=== PATIENT | female | born 1960 | race African-American/Black ===

== ENCOUNTER 2018-02-03 04:37 | Inpatient (IN) ==
[2018-01-20 14:00] LABS: Apearance,Urine CLEAR (Clear); Bacteria,Urine Occasional /HPF (Few); Bilirubin,Urine Negative (Negative); Blood, Urine Negative (Negative); Glucose,Urine (UA) Negative (Negative); Ketones,Urine Negative (Negative); Mucus,Urine Occasional /LPF (Occasional); Nitrite,Urine Negative (Negative); Protein,Urine Negative; RBC,Urine 1 /HPF (0-4); Squamous Epithelial Cell,Urine Occasional /HPF (0-10); Urine Color Yellow (Yellow); Urine Specific Gravity 1.015 (1.001-1.035); Urine Urobilinogen < 2.0 EU/DL (0.2-1.0); WBC,Urine 1 /HPF (0-6)
[2018-01-20 14:33] LABS: Albumin 3.3 G/DL (3.4-5.0); Basophils % 0.3 % (0.0-0.8); Bilirubin,Total 0.4 MG/DL (0.2-1.0); Calcium 10.3 MG/DL (8.5-10.1); Eosinophils # 0.3 10*3/uL (0.0-0.87); Eosinophils % 3.3 % (0.00-10.9); Hematocrit 39.9 VOL% (35.7-47.0); Immature Granulocytes % 0.6 %; Immature Granulocytes Absolute 0.05 #; Lymphocytes # 2.1 10*3/uL (1.4-4.0); Lymphocytes % 23.7 % (21.3-54.2); Mean Corpuscular HGB Conc 30.1 GM/DL (32-36); Mean Corpuscular Hemoglobin 29 PG (27-34); Mean Corpuscular Volume 96.6 FL (87-102); Monocytes # 0.5 10*3/uL (0.11-0.8); Monocytes % 5.2 % (1.7-12.7); Neutrophils % 66.9 % (38.7-73.9); Osmolality,Calculated 280.4 MOS/KG (273-304); Platelet Count 289 T/CUMM (130-400); Potassium 3.9 MMOL/L (3.5-5.1); Red Blood Count 4.13 MC/CUMM (3.8-5.5); Red Cell Distribution Width 15.4 % (9.3-17.3); Total Protein 8.2 G/DL (6.4-8.3)
[2018-01-20 14:43] LABS: PT Patient Result 10.2 SECS; Partial Thromboplastin Time 29.5 SECS (0-40)
[2018-02-03] MEDS ORDERED: VANCOMYCIN INJ 1,000 MG in SODIUM CHLORIDE 0.9% 250 ML IV ONE (06:00)
[2018-02-03] MEDS ORDERED: ceFAZolin 2,000 MG in PREMIX 1 EACH IV ONE (06:00)
[2018-02-03] MEDS ORDERED: BACITRACIN OINT 0.9 GM PACK TOP ONE (06:50)
[2018-02-03] MEDS ORDERED: TRANEXAMIC ACID 1,000 MG/10 ML VIAL ONE (06:50)
[2018-02-03] MEDS ORDERED: ROPIVACAINE 0.5% 30 ML VIAL ONE (07:03)
[2018-02-03] MEDS ORDERED: VANCOMYCIN 1,000 MG VIAL ONE (08:01)
[2018-02-03] MEDS ORDERED: oxyCODONE IR 5 MG TABLET PO PRN (10:02)
[2018-02-03] MEDS ORDERED: ZALEPLON 5 MG CAPSULE PO PRN (10:02)
[2018-02-03] MEDS ORDERED: ONDANSETRON 4 MG/2 ML VIAL IV PRN (10:02)
[2018-02-03] MEDS ORDERED: diphenhydrAMINE CAP 25 MG CAPSULE PO PRN (10:02)
[2018-02-03] MEDS ORDERED: MORPHINE 4 MG/1 ML VIAL IV PRN ×2 (10:02)
[2018-02-03] MEDS ORDERED: MAGNESIUM HYDROXIDE SUSP 30 ML UDCUP PO PRN (10:02)
[2018-02-03] MEDS ORDERED: SEVOFLURANE 1 UNIT/15 MINUTE INH ONE (10:25)
[2018-02-03] MEDS ORDERED: PROPOFOL 200 MG/20 ML VIAL IV ONE (10:25)
[2018-02-03] MEDS ORDERED: MIDAZOLAM 2 MG/2 ML VIAL ONE (10:25)
[2018-02-03] MEDS ORDERED: SUCCINYLCHOLINE 200 MG/10 ML VIAL ONE (10:26)
[2018-02-03] MEDS ORDERED: SODIUM CHLORIDE 0.9% 100 ML IV ONE (10:26)
[2018-02-03] MEDS ORDERED: ACETAMINOPHEN 1,000 MG/100 ML VIAL IV ONE (10:26)
[2018-02-03] MEDS ORDERED: SODIUM CHLORIDE 0.9% 250 ML IV ONE (10:26)
[2018-02-03] MEDS ORDERED: fentaNYL 100 MCG/2 ML VIAL ONE (10:26)
[2018-02-03] MEDS ORDERED: KETOROLAC 30 MG/1 ML VIAL ONE ×2 (10:26→10:38)
[2018-02-03] MEDS ORDERED: PHENYLEPHRINE 1 MG/10 ML SYRINGE IV ONE (10:26)
[2018-02-03] MEDS ORDERED: ONDANSETRON 4 MG/2 ML VIAL ONE (10:26)
[2018-02-03] MEDS: LACTATED RINGERS 1,000 ML IV SCH ×2 (10:40→18:49)
[2018-02-03] MEDS: KETOROLAC 30 MG/1 ML VIAL IV SCH ×3 (10:41→21:48)
[2018-02-03] MEDS: ceFAZolin 2,000 MG in PREMIX 1 EACH IV SCH ×2 (14:12→21:48)
[2018-02-03] MEDS: ACETAMINOPHEN 500 MG TABLET PO SCH ×2 (14:12→21:49)
[2018-02-03] MEDS: MAGNESIUM OXIDE 400 MG TABLET PO SCH ×2 (17:01→21:49)
[2018-02-03] MEDS: POTASSIUM CHLORIDE 20 MEQ TABLET PO SCH ×2 (17:01→21:49)
[2018-02-03] MEDS: ATORVASTATIN 20 MG TABLET PO SCH (21:49)
[2018-02-03] MEDS: DOCUSATE SODIUM 100 MG CAPSULE PO SCH (21:49)
[2018-02-03] MEDS: CARVEDILOL 25 MG TABLET PO SCH (21:49)
[2018-02-03] MEDS: ALLOPURINOL 100 MG TABLET PO SCH (21:49)
[2018-02-03] MEDS: FERROUS SULFATE 325 MG TABLET PO SCH (21:49)
[2018-02-03] MEDS: FUROSEMIDE 40 MG TABLET PO SCH (21:50)
[2018-02-04] MEDS: oxyCODONE IR 5 MG TABLET PO PRN (01:48)
[2018-02-04] MEDS: ACETAMINOPHEN 500 MG TABLET PO SCH ×2 (01:48→09:23)
[2018-02-04 04:01] LABS: Basophils % 0.1 % (0.0-0.8); Eosinophils # 0.3 10*3/uL (0.0-0.87); Eosinophils % 3.6 % (0.00-10.9); Hematocrit 31.4 VOL% (35.7-47.0); Hemoglobin 9.4 GM/DL (12.0-16.0); Immature Granulocytes % 0.6 %; Immature Granulocytes Absolute 0.05 #; Lymphocytes # 1.6 10*3/uL (1.4-4.0); Lymphocytes % 17.7 % (21.3-54.2); Mean Corpuscular HGB Conc 29.9 GM/DL (32-36); Mean Corpuscular Hemoglobin 29 PG (27-34); Mean Platelet Volume 10.5 FL (9.6-12.0); Monocytes # 0.5 10*3/uL (0.11-0.8); Neutrophils # 6.4 10*3/uL (1.4-7.4); Platelet Count 289 T/CUMM (130-400); Red Blood Count 3.27 MC/CUMM (3.8-5.5); Red Cell Distribution Width 15.1 % (9.3-17.3); White Blood Count 8.9 T/CUMM (4-12)
[2018-02-04 04:22] LABS: Osmolality,Calculated 283.4 MOS/KG (273-304); Potassium 4.6 MMOL/L (3.5-5.1)
[2018-02-04 04:24] LABS: Calcium 8.8 MG/DL (8.5-10.1); Osmolality,Calculated 283.4 MOS/KG (273-304); Potassium 4.6 MMOL/L (3.5-5.1)
[2018-02-04] MEDS: LACTATED RINGERS 1,000 ML IV SCH (04:35)
[2018-02-04] MEDS: FONDAPARINUX 2.5 MG/0.5 ML SYRINGE SUBCUT SCH (05:13)
[2018-02-04] MEDS: KETOROLAC 30 MG/1 ML VIAL IV SCH (05:15)
[2018-02-04] MEDS: FUROSEMIDE 40 MG TABLET PO SCH ×2 (09:22→21:19)
[2018-02-04] MEDS: LISINOPRIL 20 MG TABLET PO SCH (09:22)
[2018-02-04] MEDS: CARVEDILOL 25 MG TABLET PO SCH ×2 (09:22→21:18)
[2018-02-04] MEDS: MAGNESIUM OXIDE 400 MG TABLET PO SCH ×3 (09:22→21:19)
[2018-02-04] MEDS: SPIRONOLACTONE 25 MG TABLET PO SCH (09:23)
[2018-02-04] MEDS: POTASSIUM CHLORIDE 20 MEQ TABLET PO SCH ×3 (09:23→21:19)
[2018-02-04] MEDS: ALLOPURINOL 100 MG TABLET PO SCH ×2 (09:23→21:19)
[2018-02-04] MEDS: DOCUSATE SODIUM 100 MG CAPSULE PO SCH ×2 (09:23→21:18)
[2018-02-04] MEDS: FERROUS SULFATE 325 MG TABLET PO SCH ×2 (09:23→21:19)
[2018-02-04] MEDS ORDERED: MAGNESIUM SULF RIDER 2 GM in PREMIX 1 EACH IV ONE (12:34)
[2018-02-04] MEDS ORDERED: CELECOXIB 200 MG CAPSULE PO SCH (16:03)
[2018-02-04] MEDS: ATORVASTATIN 20 MG TABLET PO SCH (21:18)
[2018-02-05 04:33] LABS: Basophils % 0.2 % (0.0-0.8); Eosinophils # 0.3 10*3/uL (0.0-0.87); Eosinophils % 3.1 % (0.00-10.9); Hematocrit 30.2 VOL% (35.7-47.0); Immature Granulocytes % 0.6 %; Immature Granulocytes Absolute 0.07 #; Lymphocytes # 1.8 10*3/uL (1.4-4.0); Lymphocytes % 16.5 % (21.3-54.2); Mean Corpuscular HGB Conc 29.8 GM/DL (32-36); Mean Corpuscular Hemoglobin 29 PG (27-34); Mean Corpuscular Volume 95.6 FL (87-102); Mean Platelet Volume 11.1 FL (9.6-12.0); Monocytes # 0.7 10*3/uL (0.11-0.8); Monocytes % 6.1 % (1.7-12.7); Neutrophils # 8.1 10*3/uL (1.4-7.4); Neutrophils % 73.5 % (38.7-73.9); Platelet Count 294 T/CUMM (130-400); Red Blood Count 3.16 MC/CUMM (3.8-5.5); Red Cell Distribution Width 15.1 % (9.3-17.3)
[2018-02-05 04:59] LABS: Calcium 9.1 MG/DL (8.5-10.1); Osmolality,Calculated 278.7 MOS/KG (273-304); Potassium 5.2 MMOL/L (3.5-5.1)
[2018-02-05] MEDS: FONDAPARINUX 2.5 MG/0.5 ML SYRINGE SUBCUT SCH (05:45)
[2018-02-05] MEDS: CARVEDILOL 25 MG TABLET PO SCH ×2 (10:21→20:28)
[2018-02-05] MEDS: FERROUS SULFATE 325 MG TABLET PO SCH ×2 (10:21→20:28)
[2018-02-05] MEDS: SPIRONOLACTONE 25 MG TABLET PO SCH (10:21)
[2018-02-05] MEDS: DOCUSATE SODIUM 100 MG CAPSULE PO SCH ×2 (10:21→20:27)
[2018-02-05] MEDS: MAGNESIUM OXIDE 400 MG TABLET PO SCH ×3 (10:22→20:27)
[2018-02-05] MEDS: FUROSEMIDE 40 MG TABLET PO SCH ×2 (10:22→20:27)
[2018-02-05] MEDS: LISINOPRIL 20 MG TABLET PO SCH (10:22)
[2018-02-05] MEDS: ALLOPURINOL 100 MG TABLET PO SCH ×2 (10:22→20:27)
[2018-02-05] MEDS: POTASSIUM CHLORIDE 20 MEQ TABLET PO SCH ×3 (10:56→20:26)
[2018-02-05] MEDS: ATORVASTATIN 20 MG TABLET PO SCH (20:28)
[2018-02-05] MEDS: oxyCODONE IR 5 MG TABLET PO PRN (20:32)
[2018-02-06] MEDS: FONDAPARINUX 2.5 MG/0.5 ML SYRINGE SUBCUT SCH (05:44)
[2018-02-06 05:51] LABS: Basophils % 0.2 % (0.0-0.8); Eosinophils # 0.3 10*3/uL (0.0-0.87); Eosinophils % 2.2 % (0.00-10.9); Hematocrit 27.1 VOL% (35.7-47.0); Hemoglobin 8.1 GM/DL (12.0-16.0); Immature Granulocytes % 0.6 %; Immature Granulocytes Absolute 0.08 #; Lymphocytes # 2.3 10*3/uL (1.4-4.0); Mean Corpuscular HGB Conc 29.9 GM/DL (32-36); Mean Corpuscular Hemoglobin 29 PG (27-34); Mean Corpuscular Volume 96.8 FL (87-102); Mean Platelet Volume 10.9 FL (9.6-12.0); Monocytes # 1.1 10*3/uL (0.11-0.8); Neutrophils # 9.8 10*3/uL (1.4-7.4); Platelet Count 292 T/CUMM (130-400); Red Cell Distribution Width 15.2 % (9.3-17.3); White Blood Count 13.6 T/CUMM (4-12)
[2018-02-06 06:01] LABS: Calcium 8.6 MG/DL (8.5-10.1); Osmolality,Calculated 275.1 MOS/KG (273-304); Potassium 5.4 MMOL/L (3.5-5.1)
[2018-02-06] MEDS ORDERED: ASPIRIN CHEW 81 MG TABLET PO SCH (09:00)
[2018-02-06] MEDS: SPIRONOLACTONE 25 MG TABLET PO SCH (09:21)
[2018-02-06] MEDS: FERROUS SULFATE 325 MG TABLET PO SCH (09:21)
[2018-02-06] MEDS: CARVEDILOL 25 MG TABLET PO SCH (09:21)
[2018-02-06] MEDS: DOCUSATE SODIUM 100 MG CAPSULE PO SCH (09:21)
[2018-02-06] MEDS: MAGNESIUM OXIDE 400 MG TABLET PO SCH ×2 (09:22→15:29)
[2018-02-06] MEDS: ALLOPURINOL 100 MG TABLET PO SCH (09:22)
[2018-02-06] MEDS: FUROSEMIDE 40 MG TABLET PO SCH (09:22)
[2018-02-06 16:56] VITALS: BP 115/73
== END 2018-02-06 16:05 | DRG 470 ==
LOC: N.OR 04:37 → N.SDSINP 04:38 → N.3E 10:02
PROVIDERS: ADMIT Orthopaedic Surgery; ATTEND Orthopaedic Surgery

== ENCOUNTER 2019-02-11 18:00 | Inpatient (IN) ==
[2019-02-11] MEDS ORDERED: NITROGLYCERIN 2% OINT 1 INCH/GM PACK TOP STA (19:40)
[2019-02-11] MEDS ORDERED: ALBUTEROL/IPRATROPIUM 3 ML NEB RESP TX STA (19:40)
[2019-02-11] MEDS ORDERED: ONDANSETRON 4 MG/2 ML VIAL IV STA (19:40)
[2019-02-11] MEDS ORDERED: FUROSEMIDE 100 MG/10 ML VIAL IV STA (19:40)
[2019-02-11] MEDS ORDERED: hydrALAZINE 20 MG/1 ML VIAL IV STA (19:40)
[2019-02-11 19:46] LABS: Basophils % 0.4 % (0.0-0.8); Eosinophils # 0.1 10*3/uL (0.0-0.87); Eosinophils % 1.3 % (0.00-10.9); Hematocrit 39.1 VOL% (35.7-47.0); Immature Granulocytes % 0.5 %; Immature Granulocytes Absolute 0.05 #; Lymphocytes # 1.5 10*3/uL (1.4-4.0); Mean Corpuscular HGB Conc 30.7 GM/DL (32-36); Mean Corpuscular Volume 92.7 FL (87-102); Mean Platelet Volume 11.1 FL (9.6-12.0); Neutrophils % 78.8 % (38.7-73.9); Platelet Count 325 T/CUMM (130-400); Red Blood Count 4.22 MC/CUMM (3.8-5.5); Red Cell Distribution Width 14.9 % (9.3-17.3); White Blood Count 10.1 T/CUMM (4-12)
[2019-02-11 19:59] LABS: Bilirubin,Total 0.9 MG/DL (0.2-1.0); Calcium 8.9 MG/DL (8.5-10.1); Osmolality,Calculated 288.8 MOS/KG (273-304); Total Protein 7.7 G/DL (6.4-8.3)
[2019-02-11 20:01] LABS: INR 1.1; PT Patient Result 11.9 SECS (9.6-12.2)
[2019-02-11] MEDS ORDERED: MAGNESIUM SULF RIDER 2 GM in PREMIX 1 EACH IV STA (20:03)
[2019-02-11] MEDS ORDERED: KETOROLAC 30 MG/1 ML VIAL IV STA (20:03)
[2019-02-11 20:29] LABS: Apearance,Urine CLEAR (Clear); Bacteria,Urine Many /HPF (Few); Bilirubin,Urine Negative (Negative); Blood, Urine Small mg/dL (Negative); Glucose,Urine (UA) Negative (Negative); Hyaline Casts,Urine 7 /LPF (0-3); Ketones,Urine Negative (Negative); Mucus,Urine Occasional /LPF (Occasional); Nitrite,Urine Positive (Negative); Protein,Urine 100 MG/DL; RBC,Urine 1 /HPF (0-4); Squamous Epithelial Cell,Urine Occasional /HPF (0-10); Urine Color Yellow (Yellow); WBC,Urine 12 /HPF (0-6)
[2019-02-11] MEDS ORDERED: cefTRIAXone 1,000 MG in SODIUM CHLORIDE 0.9% 100 ML IV STA (20:36)
[2019-02-11] MEDS ORDERED: NICOTINE 21 MG/24 HR PATCH TRANSDERM PRN (21:22)
[2019-02-11] MEDS ORDERED: MAGNESIUM SULF RIDER 2 GM in PREMIX 1 EACH IV PRN (21:22)
[2019-02-11] MEDS ORDERED: guaiFENesin/DM ER 600-30 MG TABLET PO PRN (21:22)
[2019-02-11] MEDS ORDERED: hydrALAZINE 20 MG/1 ML VIAL IV PRN (21:22)
[2019-02-11] MEDS ORDERED: ACETAMINOPHEN 325 MG TABLET PO PRN (21:22)
[2019-02-11] MEDS ORDERED: MAGNESIUM SULF RIDER 4 GM in PREMIX 1 EACH IV PRN (21:22)
[2019-02-11] MEDS ORDERED: ONDANSETRON 4 MG/2 ML VIAL IV PRN (21:22)
[2019-02-11] MEDS ORDERED: diphenhydrAMINE CAP 25 MG CAPSULE PO PRN (21:22)
[2019-02-11] MEDS ORDERED: BISACODYL 5 MG TABLET PO PRN (21:22)
[2019-02-11 22:14] LABS: Risk Ratio 4.68; VLDL CHOLESTEROL 25.2 MG/DL
[2019-02-12] MEDS: carvediloL 25 MG TABLET PO SCH ×3 (00:31→16:47)
[2019-02-12] MEDS: POTASSIUM CHLORIDE 10 MEQ TABLET PO SCH ×2 (00:58→09:32)
[2019-02-12] MEDS: FERROUS SULFATE 325 MG TABLET PO SCH ×3 (00:58→21:19)
[2019-02-12] MEDS: ALLOPURINOL 100 MG TABLET PO SCH ×3 (00:58→21:20)
[2019-02-12] MEDS: ATORVASTATIN 20 MG TABLET PO SCH ×2 (00:58→21:20)
[2019-02-12] MEDS: ALBUTEROL/IPRATROPIUM 3 ML NEB RESP TX SCH ×4 (02:42→19:05)
[2019-02-12 05:21] LABS: Basophils % 0.4 % (0.0-0.8); Eosinophils # 0.1 10*3/uL (0.0-0.87); Eosinophils % 1.4 % (0.00-10.9); Hematocrit 35.4 VOL% (35.7-47.0); Immature Granulocytes % 0.6 %; Immature Granulocytes Absolute 0.04 #; Lymphocytes # 1.3 10*3/uL (1.4-4.0); Lymphocytes % 18.2 % (21.3-54.2); Mean Corpuscular HGB Conc 31.1 GM/DL (32-36); Mean Platelet Volume 11.1 FL (9.6-12.0); Monocytes % 3.6 % (1.7-12.7); Neutrophils % 75.8 % (38.7-73.9); Platelet Count 259 T/CUMM (130-400); Red Blood Count 3.89 MC/CUMM (3.8-5.5); Red Cell Distribution Width 15.2 % (9.3-17.3)
[2019-02-12 05:59] LABS: Albumin 2.7 G/DL (3.4-5.0); Bilirubin,Total 1.9 MG/DL (0.2-1.0); Calcium 8.6 MG/DL (8.5-10.1); Total Protein 6.8 G/DL (6.4-8.3)
[2019-02-12] MEDS: POTASSIUM CHLORIDE 20 MEQ TABLET PO PRN ×4 (07:33→13:37)
[2019-02-12] MEDS: MAGNESIUM OXIDE 400 MG TABLET PO SCH ×3 (09:30→21:20)
[2019-02-12] MEDS: FUROSEMIDE 40 MG/4 ML VIAL IV SCH ×2 (09:30→16:46)
[2019-02-12] MEDS: LISINOPRIL 20 MG TABLET PO SCH (09:30)
[2019-02-12] MEDS: PANTOPRAZOLE 40 MG TABLET PO SCH (09:32)
[2019-02-12] MEDS: ASPIRIN CHEW 81 MG TABLET PO SCH (09:32)
[2019-02-12] MEDS: MORPHINE 4 MG/1 ML VIAL IV PRN ×2 (11:38→21:19)
[2019-02-12] MEDS: POTASSIUM CHLORIDE 20 MEQ TABLET PO SCH (21:20)
[2019-02-12] MEDS ORDERED: cefTRIAXone 1,000 MG in SYRINGE 1 EACH IV SCH (22:00)
[2019-02-13] MEDS: ALBUTEROL/IPRATROPIUM 3 ML NEB RESP TX SCH ×2 (00:30→07:07)
[2019-02-13 06:11] LABS: Basophils % 0.2 % (0.0-0.8); Eosinophils # 0.2 10*3/uL (0.0-0.87); Eosinophils % 2.4 % (0.00-10.9); Hematocrit 34.6 VOL% (35.7-47.0); Hemoglobin 10.7 GM/DL (12.0-16.0); Immature Granulocytes % 0.4 %; Immature Granulocytes Absolute 0.03 #; Lymphocytes # 1.5 10*3/uL (1.4-4.0); Lymphocytes % 18.1 % (21.3-54.2); Mean Corpuscular HGB Conc 30.9 GM/DL (32-36); Mean Corpuscular Volume 92.5 FL (87-102); Mean Platelet Volume 10.2 FL (9.6-12.0); Monocytes % 6.4 % (1.7-12.7); Neutrophils % 72.5 % (38.7-73.9); Platelet Count 267 T/CUMM (130-400); Red Blood Count 3.74 MC/CUMM (3.8-5.5); Red Cell Distribution Width 15.4 % (9.3-17.3)
[2019-02-13 06:30] LABS: Calcium 8.2 MG/DL (8.5-10.1); Osmolality,Calculated 277.5 MOS/KG (273-304)
[2019-02-13] MEDS ORDERED: oxyCODONE/ACETAMINOPHEN 5-325 MG TABLET PO ONE (07:35)
[2019-02-13] MEDS: FUROSEMIDE 40 MG/4 ML VIAL IV SCH (09:52)
[2019-02-13] MEDS: carvediloL 25 MG TABLET PO SCH (09:58)
[2019-02-13] MEDS: FERROUS SULFATE 325 MG TABLET PO SCH (09:59)
[2019-02-13] MEDS: POTASSIUM CHLORIDE 20 MEQ TABLET PO SCH (09:59)
[2019-02-13] MEDS: ASPIRIN CHEW 81 MG TABLET PO SCH (09:59)
[2019-02-13] MEDS: MAGNESIUM OXIDE 400 MG TABLET PO SCH (09:59)
[2019-02-13] MEDS: LISINOPRIL 20 MG TABLET PO SCH (09:59)
[2019-02-13] MEDS: PANTOPRAZOLE 40 MG TABLET PO SCH (09:59)
[2019-02-13] MEDS: ALLOPURINOL 100 MG TABLET PO SCH (10:00)
[2019-02-13 12:43] VITALS: BP 132/71
[2019-02-13] MEDS ORDERED: FUROSEMIDE 40 MG TABLET PO SCH (16:00)
== END 2019-02-13 13:33 | disposition home or self-care (01) | DRG 304 ==
LOC: N.ED 18:00 → N.EDINP 21:22 → N.TELES 22:45
PROVIDERS: ADMIT Hospitalist; ATTEND Hospitalist

== ENCOUNTER 2019-11-22 05:01 | Observation (INO) ==
[2019-11-22 05:37] LABS: Basophils % 0.4 % (0.0-0.8); Eosinophils # 0.1 10*3/uL (0.0-0.87); Hematocrit 34.6 VOL% (35.7-47.0); Hemoglobin 10.3 GM/DL (12.0-16.0); Immature Granulocytes % 0.5 %; Immature Granulocytes Absolute 0.05 #; Lymphocytes # 1.4 10*3/uL (1.4-4.0); Lymphocytes % 14.4 % (21.3-54.2); Mean Corpuscular HGB Conc 29.8 GM/DL (32-36); Mean Platelet Volume 10.1 FL (9.6-12.0); Monocytes % 5.3 % (1.7-12.7); NRBC # 0.02 10*3/uL; Neutrophils % 78.4 % (38.7-73.9); Platelet Count 335 T/CUMM (130-400); Red Blood Count 3.53 MC/CUMM (3.8-5.5); Red Cell Distribution Width 18.5 % (9.3-17.3); White Blood Count 9.4 T/CUMM (4-12)
[2019-11-22 05:44] LABS: INR 1.1; PT Patient Result 11.7 SECS (9.8-11.9)
[2019-11-22 05:47] LABS: Albumin 2.9 G/DL (3.4-5.0); Bilirubin,Total 0.4 MG/DL (0.2-1.0); Calcium 9.5 MG/DL (8.5-10.1); Osmolality,Calculated 281.5 MOS/KG (273-304); Total Protein 7.6 G/DL (6.4-8.3)
[2019-11-22] MEDS ORDERED: FUROSEMIDE 40 MG/4 ML VIAL IV STA (05:48)
[2019-11-22] MEDS ORDERED: guaiFENesin/DM ER 600-30 MG TABLET PO PRN (06:01)
[2019-11-22] MEDS ORDERED: NICOTINE 21 MG/24 HR PATCH TRANSDERM PRN (06:01)
[2019-11-22] MEDS ORDERED: DEXTROSE 50% 25 GM/50 ML VIAL IV PRN (06:01)
[2019-11-22] MEDS ORDERED: ACETAMINOPHEN 325 MG TABLET PO PRN (06:01)
[2019-11-22] MEDS ORDERED: GLUCAGON 1 MG VIAL IM PRN (06:01)
[2019-11-22] MEDS ORDERED: hydrALAZINE 20 MG/1 ML VIAL IV PRN (06:01)
[2019-11-22] MEDS ORDERED: diphenhydrAMINE CAP 25 MG CAPSULE PO PRN (06:01)
[2019-11-22] MEDS ORDERED: ONDANSETRON 4 MG/2 ML VIAL IV PRN (06:01)
[2019-11-22] MEDS ORDERED: MORPHINE 4 MG/1 ML VIAL IV PRN (06:01)
[2019-11-22] MEDS: LEVOFLOXACIN INJ 750 MG in PREMIX 1 EACH IV SCH (06:52)
[2019-11-22] MEDS: ALBUTEROL/IPRATROPIUM 3 ML NEB RESP TX SCH ×3 (07:31→18:41)
[2019-11-22] MEDS: ENOXAPARIN 40 MG/0.4 ML SYRINGE SUBCUT SCH (09:37)
[2019-11-22] MEDS: carvediloL 25 MG TABLET PO SCH ×2 (10:10→20:41)
[2019-11-22] MEDS: lisinopriL 20 MG TABLET PO SCH (10:10)
[2019-11-22] MEDS: FUROSEMIDE 40 MG/4 ML VIAL IV SCH (20:38)
[2019-11-22] MEDS ORDERED: ASPIRIN CHEW 81 MG TABLET PO SCH (21:00)
[2019-11-22] MEDS ORDERED: ATORVASTATIN 20 MG TABLET PO SCH (21:00)
[2019-11-23] MEDS: ALBUTEROL/IPRATROPIUM 3 ML NEB RESP TX SCH ×3 (00:47→13:49)
[2019-11-23] MEDS: LEVOFLOXACIN INJ 750 MG in PREMIX 1 EACH IV SCH (06:42)
[2019-11-23] MEDS: carvediloL 25 MG TABLET PO SCH (08:57)
[2019-11-23] MEDS: ENOXAPARIN 40 MG/0.4 ML SYRINGE SUBCUT SCH (08:57)
[2019-11-23] MEDS: lisinopriL 20 MG TABLET PO SCH (08:57)
[2019-11-23] MEDS: FUROSEMIDE 40 MG/4 ML VIAL IV SCH ×2 (08:57→18:53)
[2019-11-23 15:51] VITALS: BP 97/67
== END 2019-11-23 19:02 | disposition home health service (06) ==
LOC: EDBD → EDUNIT# → N.EDINP 05:01 → N.ED 05:01 → SUATTDRO 06:01 → N.TELES 07:21
PROVIDERS: ADMIT Hospitalist; ATTEND Family Medicine

== ENCOUNTER 2019-12-20 16:07 | Inpatient (IN) ==
[2019-12-20 17:56] LABS: Basophils # 0.1 10*3/uL (0.0-0.2); Basophils % 0.6 % (0.0-0.8); Eosinophils # 0.3 10*3/uL (0.0-0.87); Eosinophils % 3.5 % (0.00-10.9); Hematocrit 35.7 VOL% (35.7-47.0); Hemoglobin 10.6 GM/DL (12.0-16.0); Immature Granulocytes % 0.2 %; Immature Granulocytes Absolute 0.02 #; Lymphocytes # 1.5 10*3/uL (1.4-4.0); Mean Corpuscular HGB Conc 29.7 GM/DL (32-36); Mean Corpuscular Volume 95.2 FL (87-102); Mean Platelet Volume 10.2 FL (9.6-12.0); Monocytes % 7.5 % (1.7-12.7); Neutrophils % 71.2 % (38.7-73.9); Platelet Count 306 T/CUMM (130-400); Red Blood Count 3.75 MC/CUMM (3.8-5.5); Red Cell Distribution Width 17.8 % (9.3-17.3); White Blood Count 8.8 T/CUMM (4-12)
[2019-12-20 18:17] LABS: Bilirubin,Total 0.4 MG/DL (0.2-1.0); Calcium 9.3 MG/DL (8.5-10.1); Osmolality,Calculated 287.3 MOS/KG (273-304); Total Protein 7.4 G/DL (6.4-8.3)
[2019-12-20] MEDS ORDERED: ALBUTEROL/IPRATROPIUM 3 ML NEB RESP TX STA (20:44)
[2019-12-20] MEDS ORDERED: ONDANSETRON 4 MG/2 ML VIAL IV STA (20:44)
[2019-12-20] MEDS ORDERED: ASPIRIN 325 MG TABLET PO STA (20:44)
[2019-12-20] MEDS ORDERED: FUROSEMIDE 100 MG/10 ML VIAL IV STA (20:44)
[2019-12-20] MEDS ORDERED: MORPHINE 4 MG/1 ML VIAL IV STA (20:44)
[2019-12-20] MEDS ORDERED: ONDANSETRON 4 MG/2 ML VIAL IV PRN (22:07)
[2019-12-20] MEDS ORDERED: GLUCAGON 1 MG VIAL IM PRN (22:07)
[2019-12-20] MEDS ORDERED: POTASSIUM CHLORIDE 20 MEQ TABLET PO PRN (22:07)
[2019-12-20] MEDS ORDERED: MAGNESIUM SULF RIDER 2 GM in PREMIX 1 EACH IV PRN (22:07)
[2019-12-20] MEDS ORDERED: MAGNESIUM SULF RIDER 4 GM in PREMIX 1 EACH IV PRN (22:07)
[2019-12-20] MEDS ORDERED: DEXTROSE 50% 25 GM/50 ML VIAL IV PRN (22:07)
[2019-12-21 07:14] LABS: Basophils % 0.5 % (0.0-0.8); Eosinophils # 0.3 10*3/uL (0.0-0.87); Eosinophils % 3.5 % (0.00-10.9); Hemoglobin 10.6 GM/DL (12.0-16.0); Immature Granulocytes % 0.4 %; Immature Granulocytes Absolute 0.03 #; Lymphocytes # 1.6 10*3/uL (1.4-4.0); Lymphocytes % 18.8 % (21.3-54.2); Mean Corpuscular HGB Conc 30.3 GM/DL (32-36); Mean Corpuscular Volume 95.1 FL (87-102); Mean Platelet Volume 9.7 FL (9.6-12.0); Monocytes % 7.6 % (1.7-12.7); Neutrophils % 69.2 % (38.7-73.9); Platelet Count 280 T/CUMM (130-400); Red Blood Count 3.68 MC/CUMM (3.8-5.5); White Blood Count 8.5 T/CUMM (4-12)
[2019-12-21 07:24] LABS: Albumin 2.9 G/DL (3.4-5.0); Bilirubin,Total 0.6 MG/DL (0.2-1.0); Calcium 9.5 MG/DL (8.5-10.1); Osmolality,Calculated 279.7 MOS/KG (273-304); Total Protein 7.4 G/DL (6.4-8.3)
[2019-12-21] MEDS: ENOXAPARIN 40 MG/0.4 ML SYRINGE SUBCUT SCH (08:14)
[2019-12-21] MEDS: FUROSEMIDE 40 MG/4 ML VIAL IV SCH ×2 (08:14→16:22)
[2019-12-21] MEDS ORDERED: TUBERCULIN SKIN TEST 0.1 ML SYRINGE INTRADERM ONE (13:00)
[2019-12-21] MEDS: NYSTATIN POWDER 15 GM BOTTLE TOP SCH ×2 (15:12→20:39)
[2019-12-21] MEDS: carvediloL 25 MG TABLET PO SCH (16:22)
[2019-12-22 08:04] LABS: Basophils % 0.3 % (0.0-0.8); Eosinophils # 0.2 10*3/uL (0.0-0.87); Eosinophils % 3.8 % (0.00-10.9); Immature Granulocytes % 0.5 %; Immature Granulocytes Absolute 0.03 #; Lymphocytes # 1.4 10*3/uL (1.4-4.0); Lymphocytes % 21.6 % (21.3-54.2); Mean Corpuscular HGB Conc 30.3 GM/DL (32-36); Mean Corpuscular Volume 94.8 FL (87-102); Mean Platelet Volume 10.1 FL (9.6-12.0); Monocytes % 7.3 % (1.7-12.7); Neutrophils % 66.5 % (38.7-73.9); Platelet Count 233 T/CUMM (130-400); Red Blood Count 3.48 MC/CUMM (3.8-5.5); White Blood Count 6.3 T/CUMM (4-12)
[2019-12-22 08:22] LABS: Calcium 9.1 MG/DL (8.5-10.1); Hypochromasia 1+; Osmolality,Calculated 279.5 MOS/KG (273-304); Platelet Estimate Adequate
[2019-12-22] MEDS: ENOXAPARIN 40 MG/0.4 ML SYRINGE SUBCUT SCH (08:35)
[2019-12-22] MEDS: SPIRONOLACTONE 25 MG TABLET PO SCH (08:35)
[2019-12-22] MEDS: ASPIRIN CHEW 81 MG TABLET PO SCH (08:35)
[2019-12-22] MEDS: OLMESARTAN 20 MG TABLET PO SCH (08:35)
[2019-12-22] MEDS: FUROSEMIDE 40 MG/4 ML VIAL IV SCH (08:35)
[2019-12-22] MEDS: carvediloL 25 MG TABLET PO SCH ×2 (08:35→17:11)
[2019-12-22] MEDS: NYSTATIN POWDER 15 GM BOTTLE TOP SCH ×2 (08:38→20:57)
[2019-12-22] MEDS ORDERED: MAGNESIUM SULF RIDER 4 GM in PREMIX 1 EACH IV ONE (10:00)
[2019-12-22] MEDS: MORPHINE 4 MG/1 ML VIAL IV PRN (11:24)
[2019-12-23] MEDS: ENOXAPARIN 40 MG/0.4 ML SYRINGE SUBCUT SCH (08:43)
[2019-12-23] MEDS: FUROSEMIDE 40 MG TABLET PO SCH (08:43)
[2019-12-23] MEDS: NYSTATIN POWDER 15 GM BOTTLE TOP SCH ×2 (08:43→21:44)
[2019-12-23] MEDS: OLMESARTAN 20 MG TABLET PO SCH (08:43)
[2019-12-23] MEDS: SPIRONOLACTONE 25 MG TABLET PO SCH (08:43)
[2019-12-23] MEDS: carvediloL 25 MG TABLET PO SCH ×2 (08:43→16:53)
[2019-12-23] MEDS: ASPIRIN CHEW 81 MG TABLET PO SCH (08:43)
[2019-12-23] MEDS: MORPHINE 4 MG/1 ML VIAL IV PRN (13:04)
[2019-12-24] MEDS: MORPHINE 4 MG/1 ML VIAL IV PRN ×3 (02:08→22:20)
[2019-12-24] MEDS: ENOXAPARIN 40 MG/0.4 ML SYRINGE SUBCUT SCH (08:54)
[2019-12-24] MEDS: ASPIRIN CHEW 81 MG TABLET PO SCH (08:54)
[2019-12-24] MEDS: SPIRONOLACTONE 25 MG TABLET PO SCH (08:54)
[2019-12-24] MEDS: carvediloL 25 MG TABLET PO SCH ×2 (08:54→16:08)
[2019-12-24] MEDS: OLMESARTAN 20 MG TABLET PO SCH (08:54)
[2019-12-24] MEDS: NYSTATIN POWDER 15 GM BOTTLE TOP SCH ×2 (08:54→22:21)
[2019-12-24] MEDS: FUROSEMIDE 40 MG TABLET PO SCH (08:54)
[2019-12-25] MEDS: OLMESARTAN 20 MG TABLET PO SCH (08:40)
[2019-12-25] MEDS: NYSTATIN POWDER 15 GM BOTTLE TOP SCH (08:40)
[2019-12-25] MEDS: ASPIRIN CHEW 81 MG TABLET PO SCH (08:40)
[2019-12-25] MEDS: SPIRONOLACTONE 25 MG TABLET PO SCH (08:40)
[2019-12-25] MEDS: FUROSEMIDE 40 MG TABLET PO SCH (08:40)
[2019-12-25] MEDS: ENOXAPARIN 40 MG/0.4 ML SYRINGE SUBCUT SCH (08:41)
[2019-12-25] MEDS: MORPHINE 4 MG/1 ML VIAL IV PRN (08:41)
[2019-12-25] MEDS: carvediloL 25 MG TABLET PO SCH (08:41)
[2019-12-25 08:56] LABS: Basophils % 0.3 % (0.0-0.8); Eosinophils # 0.3 10*3/uL (0.0-0.87); Eosinophils % 4.5 % (0.00-10.9); Hematocrit 36.3 VOL% (35.7-47.0); Hemoglobin 10.8 GM/DL (12.0-16.0); Immature Granulocytes % 0.4 %; Immature Granulocytes Absolute 0.03 #; Lymphocytes # 1.2 10*3/uL (1.4-4.0); Lymphocytes % 16.7 % (21.3-54.2); Mean Corpuscular HGB Conc 29.8 GM/DL (32-36); Mean Corpuscular Volume 95.3 FL (87-102); Mean Platelet Volume 9.8 FL (9.6-12.0); Monocytes % 6.3 % (1.7-12.7); Neutrophils % 71.8 % (38.7-73.9); Platelet Count 258 T/CUMM (130-400); Red Blood Count 3.81 MC/CUMM (3.8-5.5); White Blood Count 7.1 T/CUMM (4-12)
[2019-12-25 09:21] LABS: Calcium 9.6 MG/DL (8.5-10.1); Osmolality,Calculated 278.7 MOS/KG (273-304)
[2019-12-25 13:15] VITALS: BP 123/58
== END 2019-12-25 16:03 | disposition swing bed (61) | DRG 292 ==
LOC: N.EDINP 16:07 → N.ED 16:07 → N.5E 23:19
PROVIDERS: ADMIT Family Medicine; ATTEND Family Medicine